=== PATIENT | male | born 1950 | race Caucasian/White ===

== ENCOUNTER → 2016-10-04 | Day surgery (SDC) | payer OTHER ==
[~2016-10-04] VITALS: Ht 175.3 cm; Wt 78.0 kg
[~2016-10-04] MED LIST: ACETAMINOPHEN 1000 MG/100 ML VIAL IV SCH; BUPIVACAINE/EPINEPHRINE 0.5% PF 30 ML VIAL ONE; DO NOT ADM ANY ANTICOAGULANT DRUGS XX PRN; FLUT1SPR5 EACH NARE; INSULIN HUMAN REGULAR 1,000 UNITS/10 ML VIAL SQ PRN; LACTATED RINGER'S 1000 ML INJ 1,000 ML IV ONE; LACTATED RINGER'S 1000 ML IV SCH; LACTCAP8 PO; LISI-519 PO; METOPROLOL TARTRATE 25 MG TAB PO PRN; MIDAZOLAM HCL 2 MG/2 ML VIAL ONE; MORPHINE SULFATE 4 MG/ML INJ IV PRN; NEOSTIGMINE 3 MG/3 ML SYR IV ONE; ONDANSETRON HCL 4 MG/2 ML VIAL IV PUSH ONE; ONDANSETRON HCL 4 MG/2 ML VIAL IV PUSH PRN; PHENYLEPH/NS 1000 MCG/10 ML SYR IV ONE; PROPOFOL 200 MG/20 ML AMP IV ONE; PROT40TA PO; SODIUM CHLORID 0.9% 500 ML IV SCH; ceFAZolin 2 GM PREMIX 50 ML IV SCH; ePHEDrine/NS 25 MG/5 ML SYR IV ONE; fentaNYL CITRATE 250 MCG/5 ML AMP ONE; oxyCODONE/ACETAMINOPHEN 5 MG/325 MG TAB PO PRN
[2016-10-04 09:59] VITALS: BP 159/89; PULSE 94; RESP 18; TEMP 98.8; O2SAT 96
--- NOTE | 2016-10-04 14:05 | PD.OP ---
cc: Wyatt Pineda MD Operative Report Date of Surgery: Oct 04, 2016 Preoperative Diagnosis: (1) Bilateral inguinal hernia Postoperative Diagnosis: (1) Bilateral inguinal hernia Procedure: Laparoscopic bilateral inguinal hernia repair with mesh Anesthesia: SHER Surgeon: Wyatt Pineda Rn Practitioner(s): Gina ABRAHAM Operation and Findings: Complications: None apparent Estimated blood loss: 10 cc Operative findings: The patient had a moderate size left indirect inguinal hernia and a small right indirect inguinal hernia Procedure in detail: The patient was taken to the operating room and placed in the supine position. General endotracheal anesthesia was induced. The abdomen was prepped and draped in usual sterile fashion and a surgical timeout performed to verify correct patient procedure and site. A 1 cm incision was made inferior to the umbilicus after infiltration of local anesthetic. Dissection carried down to the underlying fascia and the anterior fascia to the left of midline was incised vertically. The retrorectus space was developed and the dissecting balloon placed down towards the pubis. The extraperitoneal space was developed by insufflating the balloon. This trocar was then removed and the structural balloon was placed. The extraperitoneal space was insufflated to 11 mmHg with CO2 gas which the patient tolerated well. Next two 5 mm ports were placed in the lower midline. Attention was turned to the left inguinal area. Lateral dissection was carried out until the psoas muscle was identified. Medially Mike's ligament was identified. The spermatic cord was evaluated and a moderate sized indirect inguinal hernia was identified. The hernia was completely reduced and the peritoneum dissected cephalad to approximately the level of the umbilicus. The cord did not have a significant spermatic cord lipoma. Ultrapro advanced mesh was cut to 11 x 14 cm size and was placed in the left inguinal area. It was attached at Mike's ligament and superior laterally as well as of the rectus anteriorly with absorbatack tacker. There was complete coverage of the entire inguinal floor including the indirect and direct spaces. Attention was then turned to the right inguinal floor. Again lateral dissection was initially carried out and then Mike's ligament identified. The direct space was evaluated and there may have been a small hernia present. The spermatic cord was evaluated and a small indirect inguinal hernia reduced. The entire floor was then cleared and ready for mesh placement. There was hemostasis. A mesh was cut to size for the right inguinal floor. This was placed and secured in the same locations using absorbatack tacker. There is complete coverage of the right inguinal area. The extraperitoneal spaces and allowed to desufflate and trochars were removed. The anterior fascia was closed with running 2-0 Vicryl suture and skin with 4- 0 Monocryl subcuticular as well as Dermabond. The patient tolerated the procedure well and was extubated and taken to PACU in stable condition. Wyatt Pineda MD Oct 04, 2016 14:05
[2016-10-04 15:15] VITALS: BP 147/81; PULSE 86; RESP 18; TEMP 98; O2SAT 98
== END | disposition home or self-care (01) ==
LOC: HSDC 09:11
PROVIDERS: ATTEND Surgery
DX: K40.20 Bilateral inguinal hernia, without obstruction or gangrene, not specified as recurrent (principal); F12.10 Cannabis abuse, uncomplicated
CPT/HCPCS: 00840; 49650; C1727; C1781; J0131; J0690; J2250; J2370; J2405; J2710; J3010; J7120